=== PATIENT | female | born 1980 | race Caucasian/White ===

== ENCOUNTER 2019-02-28 08:16 | Emergency (ER) | payer MEDICAID, SELFPAY ==
[2019-02-28 08:17] VITALS: BP 136/86; PULSE 105; RESP 16; TEMP 36.5; O2SAT 100; BMI 26.1
--- NOTE | 2019-02-28 08:26 | CT_ITS ---
STUDY: CT BRAIN WITHOUT CONTRAST REASON FOR EXAM: Female, 38 years old. LEFT SIDE HEAD PRESSURE and amp; DIZZINESS X4 DAYS RADIATION DOSAGE (If Supplied By Facility): CTDIvol = ( 44.99 ) mGy, DLP = ( 745.49 ) mGycm TECHNIQUE: Transaxial CT imaging of the brain was performed without administration of intravenous contrast material. Individualized dose optimization techniques were used for this CT. COMPARISON: No relevant priors. FINDINGS: Normal soft tissue structures. Normal calvarium. Normal size ventricles and extra-axial spaces for the patient''s age. Normal white matter tracts of the cerebral hemispheres. Normal basal ganglia and thalami. Normal brainstem. Normal cerebellum. There is no intracranial hemorrhage. There are no findings of an acute ischemic infarction. Normal visualized paranasal sinuses. CT/Brain/Head without Contrast IMPRESSION: Normal unenhanced CT scan of the brain. Electronically Signed: Dean Brooke MD at 9:24 EST , Service support ,
--- NOTE | 2019-02-28 08:28 | ED.VIS.GEN ---
History of Present Illness Chief Complaint: Headache Informant: Patient Onset: Days - 5 days Context: Gradual Onset Timing: Waxes and wanes Current Severity: Mild Maximum Severity: Mild Narrative: Patient presents with pressure sensation over the left pentecostalism. She states she got up on the morning of February 24 and felt off balance when she walks. She laid back down and then developed dizziness. She feels a throbbing pressure sensation of the left pentecostalism that is tender to touch. She denies any injury. She is had mild URI symptoms. No fever or chills. She denies increased pain with eating. Past Medical History - Allergies and Home Meds Allergies/Adverse Reactions: Allergies No Known Allergies Allergy (Verified 02/28/19 08:17) Primary Care Physician: Care Physician,No Primary [Primary Care Provider] - Prior records reviewed: Yes Past Medical History: None Lives: With Family Smoking Status: Never smoker Review of Systems General: Denies: Chills, Fever Eyes: Denies: Visual changes - bilaterally ENT: Reports: - - Mild head congestion. Denies: Bilateral ear pain, Rhinorrhea Cardiovascular: Denies: Chest pain Respiratory: Denies: Dyspnea, Cough Gastrointestinal: Reports: Nausea. Denies: Abdominal pain, Vomiting, Diarrhea Genitourinary: Denies: Dysuria Musculoskeletal: Denies: Neck pain, Back pain Skin: Denies: Rash Neurological: Reports: Headache. Denies: Weakness, Parasthesia Psych: Denies: Depression Allergy: Denies: Uticaria Physical Exam Vital Signs/Narrative: Vital Signs Temp Pulse Resp BP Pulse Ox 02/28/19 08:17 97.7 F L 105 H 16 136/86 H 100 Inital Vital Signs reviewed: Yes General: Well nourished, Well developed Head: Normocephalic, Atraumatic Eyes: Perrl, EOMI ENT: Moist mucous membranes, - - Mild tenderness location of the left pentecostalism. No skin erythema or excessive warmth. Neck: Supple Cardiovascular: Regular rate, Regular rhythm Respiratory: No distress, CTA bilaterally Abdomen: Soft, Nontender, Nondistended Back: Nontender Extremities: Nontender Skin: Normal color, No rash Neurological: Alert, Oriented x3, Normal Strength, Normal Sensation Psychological: Normal affect Diagnostic/Tx/Re-eval Impressions Brain CT 02/28/19 08:26 IMPRESSION: Normal unenhanced CT scan of the brain. Electronically Signed: Dean Brooke MD at 9:24 EST , Service support , 02/28/19 08:26 Brain/Head without Contrast [CT] Stat Laboratory Results 02/28/19 02/28/19 08:45 08:45 WBC 5.8 RBC 5.01 Hgb 15.0 Hct 45.0 MCV 89.8 MCH 29.9 MCHC 33.3 RDW Std Deviation 41.6 RDW Coeff of Jaclyn 12.7 Plt Count 210 MPV 11.0 Immature Gran % (Auto) 0.200 Neut % (Auto) 48.6 Lymph % (Auto) 40.6 [place] % (Auto) 8.8 Eos % (Auto) 1.5 Baso % (Auto) 0.3 Absolute Neuts (auto) 2.8 Absolute Lymphs (auto) 2.36 Nucleated RBC % 0 ESR 13 Sodium 137 Potassium 3.6 Chloride 106 Carbon Dioxide 24.0 Anion Gap 7 BUN 16 Creatinine 0.92 Estim Creat Clear Calc 76.86 Est GFR (MDRD) Af Amer 88 Est GFR (MDRD) Non-Af 72 BUN/Creatinine Ratio 17.4 Glucose 91 Calcium 8.8 C-React Prot Ext Range < 2.90 - Medical Decision Making Patient was given Antivert, IV fluids, prednisone. On repeat evaluation she is resting comfortably. Dizziness seems to be improved but she complains of mild headache. Patient did have symptoms of imbalance upon arising from bed. My suspicion is that she has peripheral vertigo. She will be given a prescription for Antivert. ED Disposition - Plan for ED Patient: Disposition: Home or Assisted Living Diagnosis: Vertigo Instructions: HEADACHE, Unspecified, VERTIGO, Unspecified Prescriptions: Meclizine HCl [Antivert] 25 mg PO 4X/DAY PRN PRN #20 tablet PRN Reason: Dizziness
[2019-02-28] MEDS: Meclizine HCl 25 MG Tablet PO (08:46)
[2019-02-28] MEDS: MethylPREDNISolone 125 MG/2 ML Vial IV (08:47)
[2019-02-28] MEDS: Ketorolac 30 MG/ML Syringe IV (08:47)
[2019-02-28] MEDS: 0.9% Normal Saline 1,000 ML 150 ML IV (08:47)
[2019-02-28 09:08] LABS: Erythrocyte Sedimentation Rate 13 mm/hr (0-20)
[2019-02-28 09:11] LABS: Absolute Lymphocyte Count 2.36 X10^3/uL (0.83-4.51); Absolute Neutrophil Count 2.8 X10^3/uL (2.0-7.7); Anion Gap 7 (5-15); BUN 16 mg/dL (7-18); BUN/Creat Ratio 17.4 RATIO (10-20); Basophil# 0.02 X10^3/uL; Basophil% 0.3 % (0-1); CRP < 2.90 mg/L (0.0-3.0); Calcium,Total 8.8 mg/dL (8.5-10.1); Chloride 106 mmol/L (98-107); Creatinine, Serum 0.92 mg/dL (0.55-1.02); EST Glomerular Filtration Rate 72 mL/min (>60); Eosinophil# 0.09 X10^3/uL; Eosinophils% 1.5 % (0-5); Est Glom Filt Rate - Afr Amer 88 mL/min (>60); Estimated Creatinine Clearance 76.86 ml/min; Glucose 91 mg/dL (74-106); Lymphocyte # 2.36 X10^3/ul (4.0); Lymphocyte % 40.6 % (19-41); Mean Corp Hgb Conc 33.3 g/dL (32-36); Mean Corpuscular Hgb 29.9 pg (27.0-32.0); Mean Corpuscular Volume 89.8 fL (81-99); Monocyte# 0.51 X10^3/uL; Monocyte% 8.8 % (0-10); NRBC Flagged by Analyzer 0 % (0-5); Neutrophil # 2.82 X10^3/uL (2.7-7.7); Neutrophil % 48.6 % (47-70); Platelet Count 210 K/mm3 (150-450); Potassium 3.6 mmol/L (3.5-5.1); RBC Distribution Width CV 12.7 % (11.6-14.6); RBC Distribution Width SD 41.6 fl (35.1-43.9); Red Blood Count 5.01 M/mm3 (4.2-5.4); Sodium Level 137 mmol/L (136-145); White Blood Count 5.8 K/mm3 (4.4-11.0)
[2019-02-28 10:32] VITALS: BP 108/70; PULSE 84; RESP 16; O2SAT 97
== END 2019-02-28 10:34 | disposition home or self-care (01) ==
PROVIDERS: Emergency Provider Emergency Medicine
DX: R42 Dizziness and giddiness (principal); R51 Headache
CPT/HCPCS: 70450; 80048; 85025; 85652; 86140; 96361; 96374; 96375; 99285; J7030; A4216